=== PATIENT | male | born 1960 | race Caucasian/White ===

== ENCOUNTER 2017-04-29 19:12 | Emergency (ER) | payer SELFPAY ==
[~2017-04-29] VITALS: Ht 170.2 cm; Wt 92.0 kg
[2017-04-29 19:19] VITALS: BP 119/79; PULSE 97; RESP 16; TEMP 98.6; O2SAT 95
[2017-04-29] MEDS ORDERED: SODIUM CHLOR 0.9% 1000 ML INJ 1,000 ML IV ONE ×2 (19:22→21:30)
--- NOTE | 2017-04-29 19:26 | PD ---
HPI Chief Complaint: OD/ Ingestion Time Seen by Provider: 19:23 Travel History International Travel<30 days: No Contact w/Intl Traveler<30days: No Traveled to known affect area: No History of Present Illness HPI 56-year-old male presents to the emergency department by EMS transport from [place] bathroom where he was found with decreased level of consciousness after heroin overdose. Patient was administered Narcan as well as Zofran IV. Patient had immediate increased level of consciousness according to paramedics and presents here with a GCS of 15. Patient admits also drinking a pint of alcohol. Patient is visiting from [place]. Patient denies any chronic medical conditions. Patient did fall and hit his head. Patient has abrasion to the left forehead. Patient denies any neck pain or spine pain. Patient denies any upper extremity or lower extremity numbness tingling or weakness or paresthesias. Patient denies any chest pain chest wall pain shortness of breath abdominal pain or pelvic pain. PFSH Past Medical History Narrative Medical Substance abuse alcohol abuse; nursing notes reviewed Social History Tobacco Use: Yes Allergies-Medications (Allergen,Severity, Reaction): Coded Allergies: No Known Allergies (Unverified , 04/29/17) Reported Meds & Prescriptions Reported Meds & Active Scripts Active No Active Prescriptions or Reported Medications Narrative Medication No prescription medications. Review of Systems Except as stated in HPI: all other systems reviewed are Neg Physical Exam Narrative GENERAL: Well-developed well-nourished disheveled male in no acute respiratory distress GCS 15 SKIN: Warm and mildly diaphoretic. HEAD: Atraumatic. Normocephalic. Superficial abrasion to the left forehead no scalp soft tissue swelling and abrasion laceration bony abnormality to palpation. EYES: Pupils equal and round. No scleral icterus. No injection or drainage. ENT: No nasal bleeding or discharge. Mucous membranes pink and moist. NECK: Trachea midline. No JVD. Cervical spine no tenderness to direct palpation along the cervical spine and no bony step-off. CARDIOVASCULAR: Regular rate and rhythm. RESPIRATORY: No accessory muscle use. Clear to auscultation. Breath sounds equal bilaterally. GASTROINTESTINAL: Abdomen soft, non-tender, nondistended. Hepatic and splenic margins not palpable. MUSCULOSKELETAL: Extremities without clubbing, cyanosis, or edema. No obvious deformities. NEUROLOGICAL: Awake and alert. GCS 15. No obvious cranial nerve deficits. Motor grossly within normal limits. Five out of 5 muscle strength in the arms and legs. No pronator drift. No limb ataxia. Normal speech. PSYCHIATRIC: Appropriate mood and affect; insight and judgment normal. Data Data Last Documented VS Vital Signs Date Time Temp Pulse Resp B/P (MAP) Pulse Ox O2 Delivery O2 Flow Rate FiO2 04/30/17 00:37 04/29/17 21:00 80 16 97 Nasal Cannula 2.00 04/29/17 19:19 98.6 Orders Orders Electrocardiogram (04/29/17 19:22) Basic Metabolic Panel (Bmp) (04/29/17 19:22) Complete Blood Count With Diff (04/29/17 19:22) Chest, Single Ap (04/29/17 19:22) Sodium Chlor 0.9% 1000 Ml Inj (Ns 1000 M (04/29/17 19:22) Alcohol (Ethanol) (04/29/17 19:22) Salicylates (Aspirin) (04/29/17 19:22) Tylenol (Acetaminophen) (04/29/17 19:22) Ct Brain W/O Iv Contrast(Rout) (04/29/17 ) Sodium Chlor 0.9% 1000 Ml Inj (Ns 1000 M (04/29/17 21:30) Drug Screen, Random Urine (04/29/17 21:18) Magnesium (Mg) (04/29/17 21:18) Labs Laboratory Tests Test 04/29/17 20:00 04/29/17 21:37 White Blood Count 9.6 TH/MM3 Red Blood Count 4.03 MIL/MM3 Hemoglobin 13.5 GM/DL Hematocrit 39.8 % Mean Corpuscular Volume 98.7 FL Mean Corpuscular Hemoglobin 33.5 PG Mean Corpuscular Hemoglobin Concent 33.9 % Red Cell Distribution Width 14.1 % Platelet Count 224 TH/MM3 Mean Platelet Volume 7.6 FL Neutrophils (%) (Auto) 76.8 % Lymphocytes (%) (Auto) 14.7 % Monocytes (%) (Auto) 5.6 % Eosinophils (%) (Auto) 2.5 % Basophils (%) (Auto) 0.4 % Neutrophils # (Auto) 7.3 TH/MM3 Lymphocytes # (Auto) 1.4 TH/MM3 Monocytes # (Auto) 0.5 TH/MM3 Eosinophils # (Auto) 0.2 TH/MM3 Basophils # (Auto) 0.0 TH/MM3 CBC Comment DIFF FINAL Differential Comment Blood Urea Nitrogen 11 MG/DL Creatinine 1.53 MG/DL Random Glucose 127 MG/DL Calcium Level 8.1 MG/DL Sodium Level 140 MEQ/L Potassium Level 3.8 MEQ/L Chloride Level 108 MEQ/L Carbon Dioxide Level 16.8 MEQ/L Anion Gap 15 MEQ/L Estimat Glomerular Filtration Rate 47 ML/MIN Magnesium Level 2.0 MG/DL Salicylates Level LESS THAN 1.7 MG/DL Acetaminophen Level LESS THAN 2.0 MCG/ML Ethyl Alcohol Level 29 MG/DL Urine Opiates Screen POS Urine Barbiturates Screen NEG Urine Amphetamines Screen NEG Urine Benzodiazepines Screen NEG Urine Cocaine Screen NEG Urine Cannabinoids Screen NEG MDM Medical Decision Making Medical Screen Exam Complete: Yes Emergency Medical Condition: Yes Medical Record Reviewed: Yes Interpretation(s) EKG: Sinus tachycardia rate [address] elevation injury pattern or ectopy noted CBC & BMP Diagram 04/29/17 20:00 Calcium Level 8.1 L Vital Signs Date Time Temp Pulse Resp B/P (MAP) Pulse Ox O2 Delivery O2 Flow Rate FiO2 04/29/17 21:00 80 16 135/76 (95) 97 Nasal Cannula 2.00 04/29/17 19:26 18 97 Nasal Cannula 2.00 04/29/17 19:19 98.6 97 16 119/79 (92) 95 Differential Diagnosis Overdose accidental versus intentional, polysubstance ingestion, alcohol intoxication, opiate overdose Narrative Course Patient placed on desk monitor and pulse oximetry IV access had been obtained by EMS prior to arrival glucose 105: Patient received Narcan and Zofran prior to arrival to the emergency department as well as 500 cc normal saline; specimens collected and sent for resulting imaging studies ordered. @ 8:30 PM GCS:15 @ 23:30 PM GCS: Serum alcohol 29, minimally elevated; urine drug screen positive for opiates consistent with history of heroin ingestion; CT brain noncontrast reveals no acute intracranial pathology bleed or skull fracture. Patient remains with a GCS of 15. Patient has been observed in the emergency department without recurrent altered mentation somnolence or need for additional dosing with Narcan. Patient is not suicidal. Patient is stable at this time for outpatient management Diagnosis Primary Impression: Heroin abuse Additional Impressions: Alcohol abuse Minor closed head injury Dehydration Referrals: [facility] for appointment Additional Instructions: Do not use heroin Is continue alcohol use Follow-up with Ruel Werner Return to the emergency department for any concerns Scripts No Active Prescriptions or Reported Meds Disposition: 01 DISCHARGE HOME Condition: Alix Mendez MD Apr 29, 2017 19:26
[2017-04-29] MEDS ORDERED: SODIUM CHLORIDE 0.9% FLUSH 10 ML FLUSH IVF PRN (19:30)
--- NOTE | 2017-04-29 19:49 | RADRPT ---
EXAM DATE/TIME: 04/29/2017 19:26 [facility] COMPARISON: No previous studies available for comparison. INDICATIONS : Syncope MEDICAL HISTORY : Hepatitis C. SURGICAL HISTORY : None. ENCOUNTER: Initial ACUITY: 1 day PAIN SCORE: 0/10 LOCATION: Bilateral chest FINDINGS: A single view of the chest demonstrates the lungs to be symmetrically aerated without evidence of mas s, infiltrate or effusion. The cardiomediastinal contours are unremarkable. Osseous structures are intact. CONCLUSION: 1. No acute cardiopulmonary disease. Kevin Foreman MD on April 29, 2017 at 19:48 Board Certified Radiologist. This report was verified electronically.
[2017-04-29 20:24] LABS: AUTOMATED NEUTROPHIL # 7.3 TH/MM3 (1.8-7.7); BASOPHIL % 0.4 % (0.0-2.0); EOSINOPHIL # 0.2 TH/MM3 (0-0.4); EOSINOPHIL % 2.5 % (0.0-4.0); HEMATOCRIT 39.8 % (39.0-51.0); HEMO FLAGS DIFF FINAL; LYMPH % 14.7 % (9.0-44.0); LYMPHOCYTE # 1.4 TH/MM3 (1.0-4.8); MEAN CELL VOLUME 98.7 FL (80.0-100.0); MEAN CORPUSCULAR HEMOGLOBIN 33.5 PG (27.0-34.0); MEAN CORPUSCULAR HGB CONC 33.9 % (32.0-36.0); MONO % 5.6 % (0.0-8.0); NEUT % 76.8 % (16.0-70.0); PLATELET COUNT 224 TH/MM3 (150-450); RED BLOOD COUNT 4.03 MIL/MM3 (4.50-5.90); RED CELL DISTRIBUTION WIDTH 14.1 % (11.6-17.2); WHITE BLOOD COUNT 9.6 TH/MM3 (4.0-11.0)
[2017-04-29 20:42] LABS: ANION GAP 15 MEQ/L (5-15); BICARBONATE 16.8 MEQ/L (21.0-32.0); BLOOD UREA NITROGEN 11 MG/DL (7-18); CHLORIDE 108 MEQ/L (98-107); GLOMERULAR FILTRATION RATE 47 ML/MIN (>89); POTASSIUM 3.8 MEQ/L (3.5-5.1); SODIUM (NA) 140 MEQ/L (136-145)
[2017-04-29 20:43] LABS: ALCOHOL 29 MG/DL (0-5)
[2017-04-29 20:58] LABS: ACETAMINOPHEN LESS THAN 2.0 MCG/ML (10.0-30.0)
[2017-04-29 21:00] VITALS: BP 135/76; PULSE 80; RESP 16; O2SAT 97
--- NOTE | 2017-04-29 22:40 | RADRPT ---
EXAM DATE/TIME: 04/29/2017 22:21 [facility] COMPARISON: No previous studies available for comparison. INDICATIONS : Altered mental status. Possible overdose. RADIATION DOSE: 37.61 CTDIvol (mGy) MEDICAL HISTORY : None SURGICAL HISTORY : None. ENCOUNTER: Initial ACUITY: 1 day PAIN SCALE: 0/10 LOCATION: cranial TECHNIQUE: Multiple contiguous axial images were obtained of the head. Using automated exposure control and adj ustment of the mA and/or kV according to patient size, radiation dose was kept as low as reasonably a chievable to obtain optimal diagnostic quality images. DICOM format image data is available electro nically for review and comparison. FINDINGS: CEREBRUM: The ventricles are normal for age. No evidence of midline shift, mass lesion, hemorrhage or acute in farction. No extra-axial fluid collections are seen. POSTERIOR FOSSA: The cerebellum and brainstem are intact. The 4th ventricle is midline. The cerebellopontine angle i s unremarkable. EXTRACRANIAL: The visualized portion of the orbits is intact. There is benign-appearing mucosal disease in the maxi llary antra bilaterally. SKULL: The calvaria is intact. No evidence of skull fracture. CONCLUSION: 1. No evidence of acute intracranial pathology. No masses are identified. Kevin Foreman MD on April 29, 2017 at 22:37 Board Certified Radiologist. This report was verified electronically.
--- NOTE | 2017-04-30 09:55 | EKG ---
Date Performed: 04/29/2017 Time Performed: 19:36:06 PTAGE: 56 years EKG: SINUS TACHYCARDIA ABNORMAL RHYTHM ECG NO PREVIOUS TRACING DOCTOR: Kevin Torres Interpretating Date/Time 04/30/2017 09:52:58
== END 2017-04-30 00:43 | disposition home or self-care (01) ==
LOC: NEPC 19:12
DX: F11.10 Opioid abuse, uncomplicated (principal); F10.10 Alcohol abuse, uncomplicated; S09.90XA Unspecified injury of head, initial encounter; E86.0 Dehydration; R94.31 Abnormal electrocardiogram [ECG] [EKG]; W18.30XA Fall on same level, unspecified, initial encounter; Y92.524 Gas station as the place of occurrence of the external cause
CPT/HCPCS: 70450; 71010; 80048; 80307; 83735; 85025; 93005; 96360; 96361; 99285; J7030